=== PATIENT | male | born 1955 | race Caucasian/White ===

== ENCOUNTER → 2016-10-24 | Outpatient (REF) | payer BC ==
[~2016-10-24] MED LIST: BISO10TA PO; BISO5TAB PO; CARV12.5 PO; CLOP75TA28 PO; CYCL10TA45 PO; HYDR-3702 PO; HYDR-3811 PO; LSNP10T PO; MULT-35 PO; NITR0.4T; OMG1KC PO; SIMV40TA2 PO; SMV20T PO
== END ==
LOC: LAB 11:32
PROVIDERS: ATTEND Family Medicine
DX: I25.10 Atherosclerotic heart disease of native coronary artery without angina pectoris (principal); E29.1 Testicular hypofunction
CPT/HCPCS: 80061; 84402; 84403

== ENCOUNTER 2016-12-22 06:33 | Day surgery (SDC) | payer BC ==
[~2016-12-22] VITALS: Ht 188 cm; Wt 154.1 kg
[2016-12-22] VITALS (9 sets, daily range): BP systolic 110–137; BP diastolic 64–86
[~2016-12-22 06:33] MED LIST changes: -BISO10TA PO; -BISO5TAB PO; -CARV12.5 PO; -CLOP75TA28 PO; -CYCL10TA45 PO; -HYDR-3702 PO; -HYDR-3811 PO; +LACTATED RINGERS 1,000 ML IV SCH; -LSNP10T PO; -MULT-35 PO; -NITR0.4T; -OMG1KC PO; -SIMV40TA2 PO; -SMV20T PO; +SODIUM CHLORIDE FLUSH 3 ML SYR IV PRN
[2016-12-22] MEDS ORDERED: ALFENTANIL 500 MCG/ML (ALFENTA) 5 ML AMP IV ONE ×2 (07:07)
[2016-12-22] MEDS ORDERED: MIDAZOLAM 2 MG/2 ML (VERSED) VIAL ONE (07:07)
[2016-12-22] MEDS ORDERED: PROPOFOL 20 ML IV ONE (07:07)
== END 2016-12-22 11:02 | disposition home or self-care (01) ==
LOC: ASC 06:33
PROVIDERS: ATTEND Family Medicine
DX: D12.6 Benign neoplasm of colon, unspecified (principal); Z86.010 Personal history of colon polyps
CPT/HCPCS: 45384; J2250; J7120

== ENCOUNTER → 2017-02-20 | Outpatient (REF) | payer BC ==
[~2017-02-20] MED LIST changes: +BISO10TA PO; +BISO5TAB PO; +CARV12.5 PO; +CLOP75TA28 PO; +CYCL10TA45 PO; +HYDR-3702 PO; +HYDR-3811 PO; -LACTATED RINGERS 1,000 ML IV SCH; +LSNP10T PO; +MULT-35 PO; +NITR0.4T; +OMG1KC PO; +SIMV40TA2 PO; +SMV20T PO; -SODIUM CHLORIDE FLUSH 3 ML SYR IV PRN
== END ==
LOC: LAB 09:38
PROVIDERS: ATTEND Family Medicine
DX: E29.1 Testicular hypofunction (principal)
CPT/HCPCS: 84403